=== PATIENT | female | born 1985 | race Caucasian/White ===

== ENCOUNTER 2019-04-15 23:24 | Inpatient (IN) | payer BC ==
[~2019-04-15] VITALS: Ht 167.6 cm; Wt 106.4 kg
--- NOTE | 2019-04-15 23:40 | NUR ---
at 40 weeks and 1 day arrives to unit with complaint of leakage of fluid. Pt reports large gush of clear fluid around 2215. Pt reports feeling some mild contractions about every 10 minutes apart. Pt denies vaginal bleeding and feels good movement. Pt denies headaches, blurry vision, or RUQ pain. Pt oriented to room, call light within reach, bed in low and locked position. EFM and toco explained and applied. AMNITRACE POSITIVE. SVE -/-3. Dr. Emery notified, see physician notification. Admission assessment started.
[2019-04-16] VITALS (85 sets, daily range): BP systolic 97–191; BP diastolic 54–96; PULSE 65–107; TEMP 97.5–99.3
--- NOTE | 2019-04-16 00:15 | NUR ---
18 gauge IV started in right forearm after 1 attempt. Admission labs obtained off of IV start. Lactated Ringers infusing to gravity. Consents reviewed and signed with patient and spouse. Pt educated on plan of care.
[2019-04-16] MEDS ORDERED: PRENATAL MVI (00:21)
[2019-04-16 00:34] LABS: BASO % 0.2 % (0.0-2.0); EOS # 0.1 (0.0-0.7); EOS % 0.7 % (0-4.0); GRAN # 6.7 (1.4-6.5); GRAN % 61.9 % (42.2-75.2); HEMOGLOBIN 11.9 g/dl (12.5-16.0); LYMPH # 3.2 (1.2-3.4); LYMPH % 29.3 % (20.0-51.0); MEAN CELL VOLUME 83 fl (80.0-100.0); MEAN CORPUSCULAR HEMOGLOBIN 29 pg (27.0-31.0); MEAN CORPUSCULAR HGB CONC 35 g/dl (33.0-37.0); MEAN PLATELET VOLUME 9.5 fl (7.4-10.4); MONO # 0.8 (0.1-0.6); MONO % 7.2 % (1.7-9.3); PLATELET COUNT 271 K/mm3 (130-400); RED BLOOD COUNT 4.17 M/mm3 (4.10-5.30); REDCELL DISTRIBUTION WIDTH-CV 13.4 % (11.5-14.5)
[2019-04-16 00:35] LABS: HEMATOCRIT 34.4 % (37.0-47.0)
--- NOTE | 2019-04-16 02:35 | NUR ---
0200 - Pt requesting epidural. Braxton Rodas CRNA notified. 0230 - Juan Rodas CRNA at bedside. Pt repositioned to sitting on edge of bed. Epidural procedure, risks, and benefits explained to patient, pt verbalized understanding. 0235 - Single shot by Juan Rodas CRNA, pt denies any adverse reactions. 0242 - Pt repositioned to wedge left. Safety precautions reviewed with patient. Plan of care reviewed. Spouse supportive at bedside. See Anesthesia record.
--- NOTE | 2019-04-16 03:22 | NUR ---
D[place] catheter placed to dependent drainage. Clear, yellow urine returned. Catheter secured to leg with statlock. SVE /-2. Peanut ball in place.
--- NOTE | 2019-04-16 06:20 | NUR ---
Patient uncomfortable and states she has pushed the epidural button three times and no relief. Juan Rodas CRNA notified. 0635: Alex KAMINSKI at bedside and dosing epidural. 0645: Patient states feeling a little better. 0700: Dr. Cobb updated on patient. 0705: Patient states still uncomfortable with contractions. SVE-6-7/90/-2. Alex KAMINSKI notified.
--- NOTE | 2019-04-16 07:15 | NUR ---
Alex HUMAN RESOURCES ASSISTANT at bedside and requests the need to replace epidural. Patient agrees. Patient sat up on edge of bed. 0721: Single shot given and patient tolerates well. 0725: Patient wedged left and will continue to monitor.
--- NOTE | 2019-04-16 07:37 | NUR ---
FHR baseline 125bpm and decreasing to 90-110bpm for approx. 80 seconds. Patient wedged right. 0741: FHR decreasing to 80-100bpm for approx. 3-4 minutes. During this time patient wedged left, SVE-7/90/-2, Oxygen on via mask at 10 ml/hr, left lateral. 0747: FHR gradually returning to basline of 125-130bpm. 0755: O2 off and patient left lateral and right leg resting in stirrup.
--- NOTE | 2019-04-16 08:15 | NUR ---
Dr. Cobb at nurses station and updated on patient and FHR strip. Patient wedged right and left leg resting in stirrup. Dr Cobb at bedside and SVE-/-2 per physician and orders to start pitocin.
--- NOTE | 2019-04-16 11:20 | NUR ---
FHR baseline 125-130bpm. 1124: Patient turned right lateral. FHR decreases to 100-120bpm for approx. 4 minutes with moderate variability. FHR gradually returns to baseline of 125-130bpm. 1132: FHR tracing subtle late deceleration. 1138: Patient sat up and feet lowered
--- NOTE | 2019-04-16 12:45 | NUR ---
Dr. Cobb at nurses station and reviewing FHR strip. 1250: Physician at bedside and SVE and states feeling a small amount of swelling on the anterior edge of cervix. Orders to increase pitocin. Patient right lateral and left leg resting in stirrup.
--- NOTE | 2019-04-16 13:10 | NUR ---
FHR baseline 140bpm. 1314: FHR decreasing to 90-120bpm for approx. 4 minutes, with moderate variability throughout. 1318: Patient repositioned and sat up. FHR gradually returning to 130-140bpm. 1320: FHR decreasing to 90-100bpm for 70 secoonds. Returns to baseline. 1345: called and notified of FHR strip and Physician watching FHR at office. See physician notification. 1412:Patient turned right lateral and FHR decreasing to 80-115bpm for approx. 5 minutes with moderate variability throughout. SVE 9-//0. Patient repositioned to left lateral with right leg resting in stirrup. FHR returning to baseline of 140-145bpm.
--- NOTE | 2019-04-16 15:15 | NUR ---
SVE-/[address] Cobb called and notified. 1520: Patient given pushing instructions and questions answered. Patient begins to push with each contraction. Recurrent variable decelerations noted. 1640: Dr. Cobb at bedside and begins to push with patient to assess progress and FHR strip. Recurrent variable decelerations noted. Patient continues to push with contractions. 1720: Dr. Cobb at bedside evaluating progress and discusses the options to continue to push or . Patient and spouse discuss options. 1740: Dr. Cobb at bedside and patient agrees for prime and physician goes over plan of care and risks. Patient prepped for surgery. 1751: Patient off monitors and to OR via bed. Physician does not want FHR dopplered in OR.
[2019-04-17 02:00] VITALS: BP 119/63; PULSE 86; TEMP 98.1
[2019-04-17 04:35] VITALS: BP 121/61; PULSE 88; TEMP 98.8
[2019-04-17 07:40] VITALS: BP 117/70; PULSE 88; TEMP 98.3
[2019-04-17] MEDS ORDERED: IBU800 M1 PO (08:15)
[2019-04-17] MEDS ORDERED: PERCOCET 325 MG1 TA2 PO (08:16)
--- NOTE | 2019-04-17 11:08 | NUR ---
Initial visit; Parents thanked Instrumentation Controls Engineer for offering congratulations and God's blessings for the of their son. Instrumentation Controls Engineer thanked family for choosing [facility].
[2019-04-17 16:20] VITALS: BP 128/80; PULSE 99; TEMP 98.1
[2019-04-17 23:00] VITALS: BP 119/71; PULSE 86; TEMP 97.5
[2019-04-18 08:45] VITALS: BP 131/81; PULSE 87; TEMP 98.7
--- NOTE | 2019-04-18 13:15 | NUR ---
Patient given discharge instructions and patient/spouse understand/sign papers. checked in car seat. 1350: Patient ambulatory off unit with baby and spouse per this RN
== END 2019-04-18 13:50 | disposition home or self-care (01) | DRG 788 ==
LOC: LDRO 23:24 → LDR 04-16 → OB 04-17 03:06
PROVIDERS: Obstetrics & Gynecology; ADMIT Student in an Organized Health Care Education/Training Program
PROC: 10D00Z1 Extraction of Products of Conception, Low, Open Approach (ICD-10-PCS; principal; 2019-04-16)
DX: O42.02 Full-term premature rupture of membranes, onset of labor within 24 hours of rupture (principal); Z3A.40 40 weeks gestation of pregnancy; Z37.0 Single live birth; O76 Abnormality in fetal heart rate and rhythm complicating labor and delivery; O62.1 Secondary uterine inertia; O75.89 Other specified complications of labor and delivery
CPT/HCPCS: J0690; J1885; J2175; J2210; J2270; J2370; J2405; J2590; J2795; J7120

== ENCOUNTER → 2021-01-21 | Outpatient (CLI) | payer BC, OTHER ==
[~2021-01-21] MED LIST: AMOXICILLIN 50500 MG PO; IBU600 MG PO; IBU800 M1 PO; PERCOCET 325 MG1 TA2 PO; PRENATAL MVI
== END ==
LOC: ZCOL.LAB 08:00
DX: Z20.822 Contact with and (suspected) exposure to COVID-19 (principal)

== ENCOUNTER 2021-01-26 05:47 | Inpatient (IN) | payer BC, OTHER ==
[2021-01-26] VITALS (18 sets, daily range): BP systolic 110–156; BP diastolic 55–78; PULSE 61–84; TEMP 97.7–98.2
[~2021-01-26] VITALS: Ht 167.6 cm; Wt 107.7 kg
[~2021-01-26 05:47] MED LIST changes: -IBU600 MG PO
--- NOTE | 2021-01-26 05:55 | NUR ---
Pt ambulatory on unit for scheduled with spouse. Clean gown on. 0605: EFM and TOCO explained and applied. Plan of care explained. Pt denies contractions, leaking of fluids or vaginal bleeding. Pt reports good movement. 0612: IV started and labs obtained via IV site. LR bolus infusing.
[2021-01-26 06:33] LABS: BASO % 0.1 % (0.0-2.0); EOS # 0.1 (0.0-0.7); EOS % 0.9 % (0-4.0); GRAN # 5.8 (1.4-6.5); GRAN % 62.7 % (42.2-75.2); HEMOGLOBIN 12.5 g/dl (12.5-16.0); LYMPH # 2.8 (1.2-3.4); LYMPH % 29.9 % (20.0-51.0); MEAN CELL VOLUME 84 fl (80.0-100.0); MEAN CORPUSCULAR HEMOGLOBIN 29 pg (27.0-31.0); MEAN CORPUSCULAR HGB CONC 34 g/dl (33.0-37.0); MEAN PLATELET VOLUME 9.3 fl (7.4-10.4); MONO # 0.6 (0.1-0.6); PLATELET COUNT 287 K/mm3 (130-400); RED BLOOD COUNT 4.35 M/mm3 (4.10-5.30); REDCELL DISTRIBUTION WIDTH-CV 13.7 % (11.5-14.5)
[2021-01-26 06:34] LABS: HEMATOCRIT 36.5 % (37.0-47.0)
[2021-01-27] VITALS (7 sets, daily range): BP systolic 134–149; BP diastolic 66–80; PULSE 60–77; TEMP 97.6–98.4
[2021-01-27] MEDS ORDERED: PERCOCET 325 MG1 TA2 PO (08:34)
[2021-01-27] MEDS ORDERED: IBU600 MG PO (08:34)
--- NOTE | 2021-01-27 10:12 | NUR ---
Initial visit; Parents thanked Chain Maker Hand for offering congratulations and God's blessings for the of their daughter. Chain Maker Hand thanked family for choosing [facility].
[2021-01-28 08:00] VITALS: BP 131/74; PULSE 77; TEMP 97.9
== END 2021-01-28 10:50 | disposition home or self-care (01) | DRG 788 ==
LOC: OB 05:47
PROVIDERS: ADMIT Student in an Organized Health Care Education/Training Program
PROC: 10D00Z1 Extraction of Products of Conception, Low, Open Approach (ICD-10-PCS; principal; 2021-01-26)
DX: O34.211 Maternal care for low transverse scar from previous cesarean delivery (principal); Z37.0 Single live birth; O99.214 Obesity complicating childbirth; E66.9 Obesity, unspecified; Z3A.39 39 weeks gestation of pregnancy
CPT/HCPCS: J0690; J1100; J1885; J2405; J2590; J2765; J7120